=== PATIENT | male | born 1950 | race Caucasian/White ===

== ENCOUNTER → 2022-03-30 10:25 | Outpatient (BNVA) | payer MEDICARE, SELFPAY | PROVIDERS: PCP Internal Medicine; Visit Provider Internal Medicine | DX: R68.81 Early satiety (principal); R43.2 Parageusia; R68.89 Other general symptoms and signs | CPT/HCPCS: 99202 ==

== ENCOUNTER 2022-05-04 09:47 | Day surgery (SDC) | payer MEDICARE, SELFPAY ==
[2022-04-30 11:31] VITALS: BMI 29.2
--- NOTE | 2022-05-01 10:56 | P.CONAN_ITS ---
Documented by User: Marimar Yanez NP 05/01/22 11:21 HPI - Anesthesia Eval Consult details Narrative: 71yo M for Upper Endoscopy and Colonoscopy Pradaxa for afib (Was cleared for hernia surgery by cardiology 12/2021 PMFSH Active Problems Active Problems: All Active Problems (Updated 04/30/22 @ 11:26 by Daily Pelaez, RN) Early satiety (Acute) Dysgeusia (Acute) Unintentional weight change (Acute) Past Medical History Medical History (Updated 04/30/22 @ 11:26 by Daily Pelaez RN) Anxiety and depression Arthritis Atrial fibrillation History of MRSA infection HTN (hypertension) Hyperlipidemia PONV (postoperative nausea and vomiting) Thoracic aortic aneurysm Type 2 diabetes Family History Family History Father Diabetes Sister Diabetes Brother Diabetes Brother Diabetes Surgical History Surgical History (Updated 04/30/22 @ 11:23 by Daily Pelaez RN) Hx of bilateral cataract extraction Hx of colonoscopy Hx of hernia repair Hx of total knee replacement Social History Social History Are you a primary transitional care manager to a significant other at home: No Do you presently have visiting nurse or other home services: No Patient Tobacco Use Status: Former Tobacco user Quit Date: 1984 Tobacco use type: Cigarette Have you been hit, kicked, punched, or otherwise hurt by someone within the past year? If so, by whom?: No Are you DNR?: No Advance Directives: No Advance Directives Information Provided: Yes Advance Directives on File: No Recently lost weight without trying: Yes How much weight loss: 34pounds or more Eating poorly because of decreased appetite: No Nutrition screen score: 6 Poor oral hygiene: No (full upper and lower dentures) Meds Allergies Allergy/AdvReac Type Severity Reaction Status Date / Time No Known Allergies Allergy Verified 04/30/22 11:30 Home Medications Medication Instructions Recorded Confirmed Last Taken Type allopurinol 300 mg tablet 150 mg PO DAILY 03/27/22 04/30/22 Unknown History dulaglutide 1.5 mg/0.5 mL 1.5 mg subcut QWEEK 03/27/22 04/30/22 Unknown [facility] empagliflozin 25 mg tablet 25 mg PO DAILY 03/27/22 04/30/22 Unknown History (Jardiance) metformin 500 mg tablet 500 mg PO BID 03/27/22 04/30/22 Unknown History metoprolol tartrate 25 mg tablet 12.5 mg PO BID 03/27/22 04/30/22 Unknown History sertraline 50 mg tablet 50 mg PO DAILY 03/27/22 04/30/22 Unknown History simvastatin 20 mg tablet 20 mg PO BEDTIME 03/27/22 04/30/22 Unknown History dabigatran etexilate 150 mg capsule 150 mg PO DAILY 03/30/22 04/30/22 Unknown History digoxin 250 mcg (0.25 mg) tablet 125 mcg PO DAILY 03/30/22 04/30/22 Unknown History Exam Exam Date and Time: May 01, 2022 1056 Height,Weight and Vital Signs: Height 6 ft 2 in Weight 103.419 kg Narrative Narrative: CT Angio Chest 12/2021 No change in ascending arota aneurysm compared to 2020 - measuring 5cm at maximum. (Per cardiology note, not intervention until >5.5cm) EKG 12/2021 (per cardiac note) afib, nonspecific ST abnormality ECHO 12/2021 1. Nml LV chamber size. Mild conc LVH. Mild global hypokinesis. Mildly reduced LV sys function. LVEF 45-50%. Could not assess diastolic dysfunction d/t arrhythmia 2. Mildly dilated LA 3. Enlarged RV size at 4.4cm. Nml RV global systolic function 4. Aortic sinus dilated at 5.0cm. Ascending aorta dilated at 5.1cm. 5. No hemodynamically signif valve disease. 6. When compared to echo 03/2020, RV size has increased. No other significant changes. Assessment and Plan Assessment Anesthesia Assessment: Chart Reviewed Documented by User: Jose Luis Noel MD 05/04/22 12:55 [facility] Past Medical History Medical History (Updated 04/30/22 @ 11:26 by Daily Pelaez RN) Anxiety and depression Arthritis Atrial fibrillation History of MRSA infection HTN (hypertension) Hyperlipidemia PONV (postoperative nausea and vomiting) Thoracic aortic aneurysm Type 2 diabetes Functional capacity: independent ambulation Family History Family History Father Diabetes Sister Diabetes Brother Diabetes Brother Diabetes Family history of problems with anesthesia: No Surgical History Surgical History (Updated 04/30/22 @ 11:23 by Daily Pelaez RN) Hx of bilateral cataract extraction Hx of colonoscopy Hx of hernia repair Hx of total knee replacement History of Problems with Anesthesia: Yes (Ponv ) Social History Social History Are you a primary transitional care manager to a significant other at home: No Do you presently have visiting nurse or other home services: No Patient Tobacco Use Status: Former Tobacco user Quit Date: 1984 Tobacco use type: Cigarette Have you been hit, kicked, punched, or otherwise hurt by someone within the past year? If so, by whom?: No Are you DNR?: No Advance Directives: No Advance Directives Information Provided: Yes Advance Directives on File: No Recently lost weight without trying: Yes How much weight loss: 34pounds or more Eating poorly because of decreased appetite: No Nutrition screen score: 6 Poor oral hygiene: No (full upper and lower dentures) Meds Allergies Allergy/AdvReac Type Severity Reaction Status Date / Time No Known Allergies Allergy Verified 04/30/22 11:30 Home Medications Medication Instructions Recorded Confirmed Last Taken Type allopurinol 300 mg tablet 150 mg PO DAILY 03/27/22 04/30/22 Unknown History dulaglutide 1.5 mg/0.5 mL 1.5 mg subcut QWEEK 03/27/22 04/30/22 Unknown History subcutaneous pen injector (Trulicity) empagliflozin 25 mg tablet 25 mg PO DAILY 03/27/22 04/30/22 Unknown History (Jardiance) metformin 500 mg tablet 500 mg PO BID 03/27/22 04/30/22 Unknown History metoprolol tartrate 25 mg tablet 12.5 mg PO BID 03/27/22 04/30/22 Unknown History sertraline 50 mg tablet 50 mg PO DAILY 03/27/22 04/30/22 Unknown History simvastatin 20 mg tablet 20 mg PO BEDTIME 03/27/22 04/30/22 Unknown History dabigatran etexilate 150 mg capsule 150 mg PO DAILY 03/30/22 04/30/22 Unknown History digoxin 250 mcg (0.25 mg) tablet 125 mcg PO DAILY 03/30/22 04/30/22 Unknown History Exam Airway Mallampati Class: III Denture: Upper and Lower Loose/Missing/Broken Teeth: Yes Heart: Irregular Lungs: b/l breath sounds Assessment and Plan Assessment Anesthesia Assessment: Anesthesia Plan Discussed Final Anesthetic Review Family History of Problems with Anesthesia: No History of Problems with Anesthesia: Yes (Ponv ) NPO: Yes ASA Class: III Final Preanesthetic Review: Meds/Allgs Chart Reviewed, Consent Obtained/Reviewed and Anes Risks/Benef Reviewed Patient Risk: High Procedure Risk: Intermediate Anesthetic Plan Anesthetic Plan: MAC: Disposition: Standard PACU
[2022-05-04 09:59] VITALS: BP 113/71; PULSE 78; RESP 16; TEMP 36.6; O2SAT 97; BMI 28.8
[2022-05-04 10:14] LABS: Glucose, Whole Blood 171 mg/dL (60-115)
--- NOTE | 2022-05-04 10:34 | MHC.SHP ---
Pre-Procedural Eval Section A Date of Service: 05/04/22 Section B Chief Complaint: Unintentional weight loss Details of Present Illness: 71-year-old gentleman with past medical history of atrial fibrillation, recent umbilical hernia repair, gout, is here for EGD/colo for unintentional weight loss. Last colo 2019 - records unavailable. Pt reports appetite has returned and weight has stabilized now since he was last seen in office. Relevant Family History (Specify if Yes): No Relevant Social History: Tobacco Use (Former) Present Medications: see Short Stay Collaborative assessment Medical History: No relevant PMH Allergies: Allergies Allergy/AdvReac Type Severity Reaction Status Date / Time No Known Allergies Allergy Verified 04/30/22 11:30 Review of Systems Review of Systems Comment: 10 point ROS negative except as above Exam Exam Comment: Gen appear: No acute distress, well nourished HEENT: no icterus Chest: No overt resp distress Abd: soft, nontender, nondistended Psych: Stable affect, answering questions appropriately Neuro: A/Ox3 noted to move all extremities spontaneously Ext: no peripheral edema Plan Diagnosis/Plan: Unchanged I have reviewed the history and physical and performed a pertinent physical examination on my patient. No changes have occurred unless specified. Time Spent With Patient Time: Total time managing care of this patient today ____ minutes.
--- NOTE | 2022-05-04 10:37 | P.OP_ITS ---
Operative Note Operative Note Date of Service: 05/04/22 Narrative: Procedure: Esophagogastroduodenoscopy and colonoscopy Endoscopist: Camryn Yun MD Indication: Unintentional weight loss Anesthesia Provider: Jaimee Serrato CRNA Anesthesia Type: MAC Instrument: Olympus GIF-H190 and PCF-190L ?? EGD Procedure:?? The procedure, indications, preparation and potential complications were reviewed with the patient, who indicated understanding and gave written informed consent to proceed. A physical exam was performed. The endoscope was introduced through the mouth, and advanced to the second part of duodenum. The mucosa was carefully examined on slow withdrawal of the endoscope. The patient tolerated the procedure well. There were no immediate complications.? ? EGD Findings:? * Esophagus:? Normal mucosa noted in the entire esophagus. The GE junction was at 43 cm with irregular Z line extending up to 42 cm. Cold forceps biopsies were obtained to rule out Tineo's esophagus. * Stomach:? Patchy areas of pale mucosa with elongated gastric grooves were noted especially in antrum and incisura. Random cold forceps biopsies were obtained to evaluate for GIM as well as to rule out H Pylori. * Duodenum:? Fissuring of duodenal folds noted with normal appearing villi. Cold forceps biopsies were taken from duodenal bulb and second portion of the duodenum to rule out celiac disease. Colonoscopy Procedure: The patient was then turned for the colonoscopy. A digital rectal exam was performed which was normal. The colonoscope was then inserted through the anus and advanced through the colon to the cecum at 70 cm,and terminal ileum. Ileocecal valve and appendiceal orifice were identified. Mucosa was carefully examined under high definition white light as the instrument was slowly withdrawn in a retrograde panoramic fashion. Retroflexion was performed in ascending colon and rectum. The procedure was not difficult. There were no immediate obvious complications. The quality of the prep was BBPS: 2+3+3 = adequate Withdrawal time 10 minutes. Limitations: No limitations. Findings: Mucosa: Normal to cecum and terminal ileum. Protruding lesions: * Large internal hemorrhoids without stigmata of recent bleeding. ? Impression:? * Irregular Z line (biopsy) * Abnormal gastric mucosa (biopsy) * Fissuring in duodenal folds (biopsy) * Normal colon and terminal ileum mucosa * Internal hemorrhoids ?? Recommendations:?? * Follow biopsy results. Our office will call or send a letter with results within 7-10 days. * Resume anticoagulation today. * If Tineo's metaplasia present, will need repeat EGD in 3-5 years * If H pylori +, patient will be prescribed eradication therapy followed by test of cure. * Avoid NSAIDs. Above has been reviewed with the patient. Relevant educational hand outs were provided at discharge.
[2022-05-04 11:25] VITALS: BP 91/60; PULSE 64; RESP 16; TEMP 36.5; O2SAT 97
[2022-05-04 11:46] VITALS: BP 101/66; PULSE 71; RESP 18; TEMP 36.1; O2SAT 99
== END 2022-05-04 12:55 | disposition home or self-care (01) ==
PROVIDERS: PCP Internal Medicine; Visit Provider Internal Medicine
PROC: (CPT 45378; principal; 2022-05-04 10:50)
DX: R63.4 Abnormal weight loss (principal); K64.8 Other hemorrhoids; R68.81 Early satiety; R43.2 Parageusia; R19.7 Diarrhea, unspecified; K22.89 Other specified disease of esophagus; K31.89 Other diseases of stomach and duodenum; I71.20 Thoracic aortic aneurysm, without rupture, unspecified; Z79.01 Long term (current) use of anticoagulants; I48.91 Unspecified atrial fibrillation; I10 Essential (primary) hypertension; E78.5 Hyperlipidemia, unspecified; F41.8 Other specified anxiety disorders; Z86.14 Personal history of Methicillin resistant Staphylococcus aureus infection; E11.9 Type 2 diabetes mellitus without complications; Z79.85 Long-term (current) use of injectable non-insulin antidiabetic drugs; Z87.891 Personal history of nicotine dependence; Z79.899 Other long term (current) drug therapy
CPT/HCPCS: 45378; 43239; 82947; 88305; 88342

== ENCOUNTER → 2022-05-27 12:56 | Outpatient (BNVA) | payer MEDICARE, SELFPAY | PROVIDERS: PCP Internal Medicine; Visit Provider Internal Medicine | DX: R68.81 Early satiety (principal); R43.2 Parageusia; R68.89 Other general symptoms and signs; K21.00 Gastro-esophageal reflux disease with esophagitis, without bleeding | CPT/HCPCS: 99212 ==